=== PATIENT | female | born 1980 | race Caucasian/White ===

== ENCOUNTER → 2019-05-16 | Outpatient (CLI) | payer OTHER ==
[~2019-05-16] MED LIST: IOHEXOL 180 MG/ML 10 ML VIAL. INT UTERIN ONE
--- NOTE | 2019-05-16 17:56 | KCIC ---
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 Infertility. TECHNIQUE: After the risks and benefits of the procedure were explained the patient, written informed consent was obtained. A speculum was placed into the vagina and the external cervical os was visualized and prepped with a Betadine solution. A HSG catheter was advanced through the cervical os into the endometrial canal of the uterus and the balloon was inflated. 20 cc of Omnipaque 180 were injected through the catheter for a hysterosalpingogram. Following this the balloon was inflated and the catheter was removed as was the speculum. The patient tolerated the procedure well there were no immediate complications. The total fluoroscopic time for this study was 1 minute 43 seconds. 5 digital spot radiographs were obtained. FINDINGS: The uterus appears to be retroflexed. No filling defect is seen within the endometrial canal of the uterus. Only the proximal aspect of the right fallopian tube is visualized which would be consistent with patient's history of resection of the majority of the right fallopian tube. The left fallopian tube is well-visualized. The distal left fallopian tube is irregular and narrowed consistent with the patient's history of fallopian tube scarring. This measures approximately 1 cm in length. Free spillage of contrast into the peritoneal cavity is noted. IMPRESSION: 1. The majority of the right fallopian tube is not visualized consistent with patient's history of surgical resection. 2. The distal left fallopian tube is narrowed and irregular consistent with the patient's history of scarring. The left lobe does appear patent, however. Electronically signed by: Parag Ash MD (05/16/2019 5:53 PM) [id number]
== END | disposition home or self-care (01) ==
LOC: KCIC 13:54
PROVIDERS: ATTEND Obstetrics & Gynecology
DX: N97.9 Female infertility, unspecified (principal); Z90.721 Acquired absence of ovaries, unilateral
CPT/HCPCS: 74400

== ENCOUNTER → 2019-05-19 | Outpatient (CLI) | payer OTHER ==
--- NOTE | 2019-05-20 18:05 | PATHOLOGY ---
[facility] Accession Number: [id number] . 01 Material submitted: . breast - LEFT BREAST. Modifiers: left . 01 Clinical history: . Left breast mass. . 02 Diagnosis: Breast tissue, left breast mass needle biopsies: - Fibroadenoma. LBQ/05/20/2019 . 02 Comment: There is no evidence of malignancy. (JPM/db; 05/20/2019) . 02 Electronically signed: . Jose Jerez MD, Pathologist NPI- [id number] . 01 Gross description: . Received in formalin labeled "Diana Chicas, left breast" is a 2.5 x 1.6 x 0.2 cm aggregate of yellow-goldman cylindrical soft tissue cores. The specimen is submitted entirely in cassettes A1-A2. The specimen is removed from the patient at 1315 and placed in formalin at 1320 on May 19, 2019. The specimen is removed from formalin at 2340 on May 19, 2019. ([facility] [place] 05/19/2019[place] SY/SYC . 02 Pathologist provided ICD-10: D24.2 . 02 CPT . 355455 Specimen Comment: A courtesy copy of this report has been sent to Specimen Comment: [phone], . Specimen Comment: Report sent to / DR CURRY Performed at: 01 [facility] [address], [place] [id number] MD Gary Munoz MD Phone: [phone] Performed at: 02 [facility] [address], [place] [id number] MD Jose Jerez MD Phone: [phone]
--- NOTE | 2019-05-24 13:53 | RAD ---
Ultrasound-guided left breast biopsy, 05/19/2019: HISTORY: Suspicious breast nodule The body of the report below was dictated by Dr. Clark who had performed a biopsy procedure. The impression was dictated by Dr. Frye. Outside imaging demonstrated a suspicious hypoechoic nodule at the 8:00 location in the left breast. Under local anesthesia, aseptic conditions and sonographic guidance the [employer] biopsy instrument was passed along the posterior margin of this nodule via an inferomedial approach. Multiple 12-gauge vacuum-assisted core samples were obtained. A biopsy marker was then deposited the biopsy site. The biopsy instrument was removed and hemostasis obtained. Two-view postprocedural digital mammograms were then obtained to document position of the biopsy marker. The patient tolerated the procedure well and left the department in good condition. IMPRESSION: Pathology report states that the mass which was biopsied and represents a fibroadenoma. This is concordant with imaging. 6 month follow-up mammogram and limited ultrasound of the left breast recommended.
== END ==
LOC: EDUNIT# 04-11 11:30 → US 05-16 13:45
PROVIDERS: ATTEND Obstetrics & Gynecology
DX: D24.2 Benign neoplasm of left breast (principal)
CPT/HCPCS: 19083; 77065; 88305; C1713; 19081; 76942